=== PATIENT | female | born 1990 | race Caucasian/White ===

== ENCOUNTER 2018-09-13 07:39 | Emergency (ER) | payer MEDICAID, OTHER ==
[~2018-09-13] VITALS: Ht 162.6 cm; Wt 85.9 kg
[~2018-09-13 07:39] MED LIST: PREN1TAB17 PO
[2018-09-13 07:42] VITALS: Ht 162.6 cm; Wt 85.9 kg
[2018-09-13] MEDS ORDERED: CEFTRIAXONE 1 GM/50 ML (PMX) 50 ML IVPB STA (07:53)
[2018-09-13] MEDS ORDERED: ACETAMINOPHEN 325 MG TAB PO STA (07:53)
[2018-09-13] MEDS ORDERED: SODIUM CHLORIDE 0.9% 1L BAG IV* STA (07:53)
[2018-09-13] MEDS ORDERED: CEPH-443 PO (09:19)
[2018-09-13] MEDS ORDERED: IBUP-1542 PO (09:19)
[2018-09-13] MEDS ORDERED: ACET325T33 PO (09:19)
[2018-09-13] MEDS ORDERED: IBUPROFEN 800 MG TAB PO ONE (09:30)
--- NOTE | 2018-09-13 09:59 | ERD ---
ER Documentation Chief Complaint Chief Complaint flu like symptoms with body aches, vomiting and fever x 3 days, cwp HPI Patient is a 28-year-old female with no medical problems who presents with fever. She says that she has had fever for the past 3 days as high as 106. She has chest pain as well. She has bone pain. She has pain with urination and flank pain as well. She has had no treatment as of yet. She took amoxicillin yesterday. Upon review of old medical records this is the patient's first visit to the emergency department. She does not currently have a primary doctor. ROS All systems reviewed and are negative except as per history of present illness. Medications Home Meds Active Scripts Acetaminophen* (Tylenol*) 325 Mg Tablet, 2 TAB PO Q8 PRN for PAIN AND OR ELEVATED TEMP, #20 TAB Prov:JANI WEEKS MD 09/13/18 Ibuprofen* (Motrin*) 600 Mg Tab, 600 MG PO Q8 PRN for PAIN AND OR ELEVATED TEMP, #30 TAB Prov:JANI WEEKS MD 09/13/18 Cephalexin* (Keflex*) 500 Mg Capsule, 500 MG PO BID for 7 Days, CAP Prov:JANI WEEKS MD 09/13/18 Reported Medications Vit-Iron Fumarate-FA ( Tablet) 1 Each Tablet, 1 EACH PO DAILY 08/24/12 Allergies Allergies: Coded Allergies: No Known Allergies (Verified Allergy, Mild, 08/24/12) PT HAS NO KNOWN ALLERGIES PMhx/Soc Medical and Surgical Hx: pt denies Medical Hx, pt denies Surgical Hx Hx Alcohol Use: Yes (09/10/18) Hx Substance Use: Yes (marijuana) Hx Tobacco Use: No Smoking Status: Never smoker FmHx Family History: diabetes Physical Exam Vitals Vital Signs Date Temp Pulse Resp B/P (MAP) Pulse Ox O2 O2 Flow FiO2 Time Delivery Rate 09/13/18 102.5 08:26 09/13/18 102.5 110 08:25 09/13/18 103.8 168 24 120/75 99 07:42 (90) Physical Exam Const: Moderate distress Head: Atraumatic Eyes: Normal Conjunctiva ENT: Normal External Ears, Nose and Mouth. Neck: Full range of motion. No meningismus. Resp: Clear to auscultation bilaterally Cardio: Tachycardic rate without murmur Abd: Soft, non tender, non distended. Normal bowel sounds Skin: No petechiae or rashes Back: No midline or flank tenderness Ext: No cyanosis, or edema Neur: Awake and alert Psych: Normal Mood and Affect Result Diagram: 09/13/18 0801 09/13/18 0801 Results 24 hrs Laboratory Tests Test 09/13/18 07:58 09/13/18 08:01 09/13/18 08:32 09/13/18 08:45 POC Venous 1.9 mmol/L Lactate White Blood Count 9.3 10^3/ul Red Blood Count 4.04 10^6/ul Hemoglobin 13.2 g/dl Hematocrit 38.2 % Mean Corpuscular 94.6 fl Volume Mean Corpuscular 32.7 pg Hemoglobin Mean Corpuscular 34.6 g/dl Hemoglobin Concen t Red Cell 11.9 % Distribution Width Platelet Count 188 10^3/UL Mean Platelet 10.4 fl Volume Immature 0.400 % Granulocytes % Neutrophils % 79.9 % Lymphocytes % 10.6 % Monocytes % 8.9 % Eosinophils % 0.1 % Basophils % 0.1 % Nucleated Red 0.0 /100WBC Blood Cells % Immature 0.040 10^3/ul Granulocytes # Neutrophils # 7.4 10^3/ul Lymphocytes # 1.0 10^3/ul Monocytes # 0.8 10^3/ul Eosinophils # 0.0 10^3/ul Basophils # 0.0 10^3/ul Nucleated Red 0.0 10^3/ul Blood Cells # Prothrombin Time 13.8 Sec Prothrombin Time 1.1 Ratio INR International 1.05 Normalized Ratio Activated 32.3 Sec Partial Thrombopl ast Time Sodium Level 137 mmol/L Potassium Level 3.6 mmol/L Chloride Level 101 mmol/L Carbon Dioxide 24 mmol/L Level Anion Gap 12 Blood Urea 8 mg/dl Nitrogen Creatinine 0.76 mg/dl Est Glomerular > 60 mL/min Filtrat Rate mL/min Glucose Level 180 mg/dl Calcium Level 9.3 mg/dl Total Bilirubin 0.8 mg/dl Direct Bilirubin 0.00 mg/dl Indirect 0.8 mg/dl Bilirubin Aspartate Amino 18 IU/L Transf (AST/SGOT) Alanine 15 IU/L Aminotransferase (ALT/SGPT) Alkaline 76 IU/L Phosphatase Troponin I < 0.012 ng/ml Total Protein 8.3 g/dl Albumin 4.4 g/dl Globulin 3.90 g/dl Albumin/Globulin 1.12 Ratio Urine Color YELLOW Urine Clarity SLIGHTLY CLOUDY Urine pH 8.0 Urine Specific 1.011 [place] Urine Ketones 1+ mg/dL Urine Nitrite NEGATIVE mg/dL Urine Bilirubin NEGATIVE mg/dL Urine NEGATIVE mg/dL Urobilinogen Urine Leukocyte 2+ Neal/ul Esterase Urine Microscopic 22 /HPF RBC Urine Microscopic 92 /HPF WBC Urine Squamous FEW /HPF Epithelial Cells Urine Bacteria FEW /HPF Urine Hemoglobin 2+ mg/dL Urine Glucose NEGATIVE mg/dL Urine Total 1+ mg/dl Protein POC Beta HCG, NEGATIVE Qualitative Current Medications Medications Dose Sig/Denis Start Time Status Last (Trade) Ordered Route PRN Stop Time Admin Dose Reason Admin Sodium 2,580 ml BOLUS OVER 2 09/13/18 DC 09/13/18 Chloride HOURS STAT 07:53 08:27 (NS) IV* 09/13/18 07:54 650 mg ONCE STAT 09/13/18 DC 09/13/18 Acetaminophen PO 07:53 08:26 (Tylenol 09/13/18 07:54 Tab) Ceftriaxone 50 ml @ ONCE STAT 09/13/18 DC 09/13/18 Sodium 100 mls/hr IVPB 07:53 08:27 09/13/18 08:22 Ibuprofen 800 mg ONCE ONCE 09/13/18 DC 09/13/18 (Motrin) PO 09:30 09:17 09/13/18 09:31 Procedures/MDM Chest x-ray negative per radiology. EKG read by me: Rate/Rhythm: Sinus tachycardia Intervals: Normal Impression: Tachycardia without ischemia Patient is a 28-year-old female who presents with fever and tachycardia. She was found to have acute pyelonephritis. She is young and otherwise healthy and has improved with Tylenol, Motrin, and normal saline bolus. She was given 1 dose of ceftriaxone. I believe outpatient management is appropriate with a prescription for Keflex for 1 week. She will need to follow-up closely with the community clinics however she does not currently have a primary doctor. She can return sooner for any worsening symptoms. I doubt sepsis or septic shock at this time. Critical Care: Time: 35 minutes excluding all billable p rocedures. Treatments/Evaluations: Close monitoring and treatment of unstable vital signs, cardiorespiratory, and neurologic status, while maintaining tight balance of fluid, respiratory, and cardiac interventions. Departure Diagnosis: Primary Impression: Pyelonephritis Condition: Fair Patient Instructions: Pyelonephritis, Female (Adult) Referrals[facility] Usted se abbott hecho un examen mdico de control que le indica que no est en racquel condicin que requiera tratamiento urgente en el Departamento de Emergencia. Un estudio ms profundo y el tratamiento de jamison condicin pueden esperar sin ningn riesgo hasta que usted sea atendida/o en el consultorio de jamison mdico o racquel clnica. Es responsabilidad suya arreglar racquel nery para el seguimiento del santy. MANEJO DE CONDICIONES NO URGENTES EN EL FUTURO 1) Si usted tiene un mdico de atencin primaria: Usted debera llamar a jamison mdico de atencin primaria antes de venir al departamento de emergencia. Despus de las horas de consultorio, jamison doctor o jamison asociado/a est disponible por telfono. El mdico o enfermero de jennifer en el servicio telefnico puede asesorarle por roc medio para atender el problema, o santy contrario se puede programar racquel nery. 2) Si usted no tiene un mdico de atencin primaria: Llame al mdico o clnica de referencia que aparece abajo kristopher las horas de consultorio para hacer racquel nery para que le vean. CLINICAS: [facility] [phone] [facility] [phone] [facility] [phone] [facility] [facility] [phone] [facility]. [place] [id number] [phone] [facility]. [phone] [address] Additional Instructions: Llame al doctor MAANA y carolina racquel NERY PARA DENTRO DE 1-2 BOLIVAR.Dgale a la secretaria que nosotros le instruimos hacer esta nery.Avise o llame si jamison condicin se empeora antes de la nery. Regresa aqui si peor o no mejor. JANI WEEKS MD Sep 13, 2018 09:59
[2018-09-13 10:45] VITALS: BP 101/56; PULSE 86; RESP 16
== END 2018-09-13 11:09 | disposition home or self-care (01) ==
LOC: E/R 07:39
DX: N12 Tubulo-interstitial nephritis, not specified as acute or chronic (principal); R07.89 Other chest pain
CPT/HCPCS: 36415; 71045; 80053; 81001; 81025; 83605; 84484; 85025; 85610; 85730; 87040; 87086; 93005; 96374; J0696; J7030; Z7502; Z7610